=== PATIENT | male | born 1955 | race African-American/Black ===

== ENCOUNTER 2019-03-18 14:01 | Emergency (ER) | payer BC ==
[~2019-03-18] VITALS: Ht 167.6 cm; Wt 74.8 kg
[2019-03-18 14:11] VITALS: Ht 167.6 cm; Wt 74.8 kg
[2019-03-18 16:15] VITALS: BP 121/69
== END 2019-03-18 16:15 | disposition home or self-care (01) ==
LOC: ED 14:01
DX: K59.00 Constipation, unspecified (principal); E11.9 Type 2 diabetes mellitus without complications